=== PATIENT | male | born 1945 | race Caucasian/White ===

== ENCOUNTER 2017-06-03 07:38 | Day surgery (SDC) | payer MEDICARE ==
[~2017-06-03] VITALS: Ht 172.7 cm; Wt 86.1 kg
[~2017-06-03 07:38] MED LIST: CLOB-50 TOP; DESO0.0560 TOP; DIAZ5TAB PO; LACT20SO4 PO; MOBI15TA PO; RAMI10CA35 PO
[2017-06-03] MEDS ORDERED: SODIUM BICARBONATE 100 MEQ in D5W 1000 ML IV SCH (08:00)
[2017-06-03 08:32] VITALS: BP 128/78; PULSE 65; RESP 16; TEMP 98.2; O2SAT 96
[2017-06-03] MEDS ORDERED: HEPARIN SODIUM - IV 10,000 UNITS/10 ML VIAL ONE (08:34)
[2017-06-03] MEDS ORDERED: NITROGLYCERIN INJ 5 ML ONE (08:34)
[2017-06-03] MEDS ORDERED: MIDAZOLAM HCL 5 MG/5 ML VIAL ONE (08:34)
[2017-06-03] MEDS ORDERED: DIAZ5TAB PO (08:43)
[2017-06-03] MEDS ORDERED: TRAM50TA PO (08:43)
[2017-06-03] MEDS ORDERED: NORC5TAB PO (08:43)
[2017-06-03] MEDS ORDERED: RAMI10CA PO (08:43)
[2017-06-03 08:57] LABS: AUTOMATED NEUTROPHIL # 3.6 TH/MM3 (1.8-7.7); BASOPHIL % 0.6 % (0.0-2.0); EOSINOPHIL # 0.1 TH/MM3 (0-0.4); EOSINOPHIL % 0.9 % (0.0-4.0); HEMATOCRIT 44.8 % (39.0-51.0); HEMO FLAGS DIFF FINAL; LYMPH % 27.9 % (9.0-44.0); LYMPHOCYTE # 1.6 TH/MM3 (1.0-4.8); MEAN CELL VOLUME 97.4 FL (80.0-100.0); MEAN CORPUSCULAR HGB CONC 33.9 % (32.0-36.0); MONO % 7.6 % (0.0-8.0); PLATELET COUNT 138 TH/MM3 (150-450); RED CELL DISTRIBUTION WIDTH 12.7 % (11.6-17.2); WHITE BLOOD COUNT 5.8 TH/MM3 (4.0-11.0)
[2017-06-03 09:10] LABS: BICARBONATE 27.5 MEQ/L (21.0-32.0); POTASSIUM 3.9 MEQ/L (3.5-5.1)
[2017-06-03] MEDS ORDERED: MIDAZOLAM HCL 5 MG/ML VIAL (1 ML) ONE (09:51)
[2017-06-03] MEDS ORDERED: diphenhydrAMINE HCL 50 MG/ML VIAL ONE (10:09)
--- NOTE | 2017-06-03 10:18 | HHI.PR ---
Immediate Post Op Note Procedure Date: Jun 03, 2017 Pre Op Diagnosis: PAD, L LE claudication Post Op Diagnosis: PAD, L LE claudication Surgeon: Negro Herzog Lay Brother(s): none Procedure: Aortogram w/ L LE angiogram L popliteal angioplasty (5mm) R INDUSTRIAL DIAMOND POLISHER Angioseal Findings: occluded AK popliteal artery, recanalized and successful SENIOR QUALITY ASSURANCE ENGINEER peroneal only runoff AT and PT reconstitution Additional Information: R INDUSTRIAL DIAMOND POLISHER Angioseal Complications: none Specimen(s) removed: none Estimated blood loss: 5mL Anesthesia: MAC Drains: None Patient to: Other (DOCU) Patient Condition: Good Date/Time of Procedure: SEE SURGICAL CARE RECORD Negro Herzog MD Jun 03, 2017 10:18
[2017-06-03] MEDS ORDERED: CLOPIDOGREL 75 MG TAB PO ONE (10:30)
[2017-06-03] MEDS ORDERED: ONDANSETRON HCL 4 MG/2 ML VIAL ONE (11:23)
--- NOTE | 2017-06-03 20:06 | MP ---
cc: ANDREA HERZOG MD DATE OF SURGERY 06/02/17 PREOPERATIVE DIAGNOSIS Left lower extremity claudication POSTOPERATIVE DIAGNOSIS Left lower extremity claudication PROCEDURE 1. Aortogram with left extremity angiogram. 2. Left popliteal angioplasty with a 5 mm balloon. ATTENDING SURGEON Ashley Herzog MD LADLER None. ANESTHESIA Local with sedation INDICATION Mr. Shah is a 71-year old gentleman with left lower extremity claudication that is lifestyle-limiting. He has attempted medical management and failed. After discussion of risks with the patient he was offered an endovascular intervention. There is no prior catheter-based imaging available for my review. DESCRIPTION OF PROCEDURE Informed consent was obtained from the patient. He was taken to the operating room and placed supine on the operating table. Appropriate time-out was taken to ensure the patient's identity, operative site and planned procedure. Administration of antibiotics was not necessary as this is a clean procedure without a planned implantation of any foreign object. Everyone in the room agreed to time-out and we proceeded. His right groin was anesthetized with 1% lidocaine and a 21 gauge micropuncture needle was used to access the right common femoral artery. This was exchanged using Seldinger technique for a micropuncture sheath which a 0. 035 Orleans wire was introduced and the micropuncture sheath was exchanged for a 4-Cymro sheath. The VCF catheter was placed over the wire and through the sheath and aortogram pelvic arteriogram was obtained. The Orleans wire was reintroduced, navigated down to the left common femoral artery and a VCF catheter was advanced over this. A left lower extremity arteriogram was obtained. The patient was systemically heparinized with 5000 units of intravenous heparin. A 0.035 Hernandez wire was introduced and passed down to the mid SFA. The VCF catheter and 4-Cymro sheath were removed and a 6-Cymro 55 cm Leander sheath was introduced. A CSI catheter was placed over the wire and the wire was exchanged for a 0.014 OUTSIDE EVENT SALES SPECIALIST wire. Using a CT wire and CXI catheter we were able to navigate past the SFA occlusion into the popliteal artery. This was confirmed angiographically. The OUTSIDE EVENT SALES SPECIALIST wire was exchanged for a Hernandez wire. The CSI catheter was removed and the entire area was angioplasties with a 5-mm balloon. The completion angiogram showed excellent result and no recoil extravasation or flow-limiting dissection and there were no embolic complications. The wire catheter and sheath were removed. The groin was closed with AngioSeal. There were no complications. I was present and scrubbed and performed the entire procedure. INTERPRETATION The patient has patent renal arteries, patent infrarenal aorta and common iliac arteries, epigastric artery and external arteries bilaterally. The left common femoral artery and proximal superficial femoral artery are patent. At the adductor canal the superficial femoral artery occludes and there are well formed perigenicular collaterals. The popliteal artery reconstitutes and there is single vessel runoff to the foot with the anterior tibial artery and posterior tibial arteries reconstituting only distally. After angioplasty of the popliteal artery, there is a significant reduction in opacification of these collaterals and good in-line flow down through the peroneal artery. There is no embolic complications. MD TREVOR Hood/ /5:10 PM /7:53 PM
[2017-06-04] MEDS ORDERED: CLOPIDOGREL 75 MG TAB PO SCH (09:00)
--- NOTE | 2017-06-04 20:19 | EKG ---
Date Performed: 06/03/2017 Time Performed: 08:53:54 PTAGE: 71 years EKG: Sinus rhythm . Normal ECG PREVIOUS TRACING : 08/16/2015 10.36 Compared to prior tracing no significant change DOCTOR: Praneeth Akers Interpretating Date/Time 06/04/2017 20:18:55
== END 2017-06-03 13:25 | disposition home or self-care (01) ==
LOC: HDOC 07:38 → HDIC 07:38 → HDOC 13:25
PROVIDERS: ATTEND Surgery
DX: I73.9 Peripheral vascular disease, unspecified (principal); I70.90 Unspecified atherosclerosis; I10 Essential (primary) hypertension; M51.06 Intervertebral disc disorders with myelopathy, lumbar region; Z01.818 Encounter for other preprocedural examination
CPT/HCPCS: 37224; 75625; 75710; 80048; 85025; 93005; C1725; C1769; G0269; J1200; J1644; J2250; J2405; J3010

== ENCOUNTER 2017-07-16 07:15 | Day surgery (SDC) | payer MEDICARE ==
[~2017-07-16] VITALS: Ht 172.7 cm; Wt 72.7 kg
[~2017-07-16 07:15] MED LIST changes: -CLOB-50 TOP; -DESO0.0560 TOP; -LACT20SO4 PO; -MOBI15TA PO; +NORC5TAB PO; +RAMI10CA PO; -RAMI10CA35 PO; +TRAM50TA PO
[2017-07-16] MEDS ORDERED: IOHEXOL 350 MG/ML 50 ML BTL (for Cath Lab) OTHER ONE (07:16)
--- NOTE | 2017-07-16 07:32 | PD.VS.PN ---
Pre-operative Note Pre-operative diagnosis: Recurrent L LE claudication, PAD Planned procedure: L LE angiogram and possible intervention Interval History: Pt has been feeling well since last procedure. Specifically no F/C/N/V. Ready for procedure. Orders: NPO Post-operative destination: DOCU Operative site marked: Yes Consent: Informed consent has been obtained from Tommy Shah. I have explained the procedure in detail and discussed the risks, benefits, and potential complications. All questions have been answered. Negro Herzog MD Jul 16, 2017 07:32
[2017-07-16 08:00] VITALS: BP 112/76; PULSE 57; RESP 18; TEMP 98; O2SAT 98
[2017-07-16] MEDS ORDERED: HEPARIN-NS/PF INJ 1,000 ML ONE (08:15)
[2017-07-16] MEDS ORDERED: MIDAZOLAM HCL 2 MG/2 ML VIAL ONE ×2 (08:16→08:34)
[2017-07-16] MEDS ORDERED: HEPARIN SODIUM - IV 10,000 UNITS/10 ML VIAL ONE (08:17)
--- NOTE | 2017-07-16 08:59 | HHI.PR ---
Immediate Post Op Note Procedure Date: Jul 16, 2017 Pre Op Diagnosis: LLE claudication, PAD Post Op Diagnosis: LLE claudication, PAD Surgeon: Negro Herzog Burr Bench Operator(s): none Procedure: L LE angiogram L popliteal LICENSED OPTICIAN (5mm) with DCB R HOT MILL OPERATOR Angioseal Findings: occlusion of popliteal artery recanalization of popliteal artery with DCB Complications: none Specimen(s) removed: none Estimated blood loss: 10mL Anesthesia: MAC Drains: None Fluids: 400mL IVF Patient to: Other (DOCU) Patient Condition: Good Date/Time of Procedure: SEE SURGICAL CARE RECORD Negro Herzog MD Jul 16, 2017 08:59
[2017-07-16] MEDS ORDERED: CLOPIDOGREL 75 MG TAB PO ONE (09:00)
--- NOTE | 2017-07-16 09:02 | CATHPROC ---
[facility] HIS Report Study Information Study Number Admission Scheduled Start Study Start [id number] Jul 16 2017 7:15AM 07/16/2017 Jul 16 2017 8:07AM [facility] Endovascular Study Admit Source Facility Department Other [facility] - Fish Hatchery Laborer Physician and Clinical Staff Initial MD Herzog, Negro Cable Assembler And Swager Akira Villarreal,HAI Recorder Michael Phipps,RT(R) ScrBetty Rodgers,RT(R) (BS) Procedures Performed Procedure Location (Site) Vessel Name Angiogram (manual) Fem L. Com (L7) Femoral Art Angiogram (manual) SFA (left) Femoral Art Angiogram (manual) Tib, Ant. (left) Popliteal PRODUCTION MANUFACTURING WORKER SFA (left) Femoral Art Wire insertion Fem Art (right) Femoral Art Equipment Time Customer Expert Description Size Mfg Part Number Used/Scraped [id number] 08:25 ANGIO-DYNAMICS OMNI FLUSH 65CM CATHETER FR 4 Used *[id number] BALLOON, LUTONIX 5 X 100 [id number] 08:41 BARD 5 X 100 Used 130CM DCB *[id number] MPIS-502-10.0- INTRODUCER SET, 08:27 COOK INC. FR 5 SC-NT-U-SST Used MICROPUNCTURE, STIFFENED *[id number] CXI-4.0-35-135- 08:31 COOK/ALBINO CATHETER, FR4 CXI SUPPORT FR 4 Used P-NS-0 *[id number] SHEATH, FR6 VERONA 1 FLEXOR KCFW-6.0-35-55- 08:31 COOK/ALBINO FR 6 Used 55CM LX-XNLUF0-AM WIRE, GUIDE APPROACH WATCH HAIRSPRING ASSEMBLER [id number] 08:31 COOK/ALBINO 300CM Used MICROWIRE *[id number] 08:50 DAIG/ST. TOYIN MEDICAL ANGIOSEAL, FR6 VIP FR 6 Used *[id number] 08:20 MALLINCKRODT SYRINGE, ANGIOMAT 150ML 150ML [id number] Used [id number] 08:20 [employer] INDUSTRIES PACK, CCL CUSTOM * Used *[id number] 4205-33 08:31 MERIT MEDICAL WIRE, BLANCHARD 260CM .035 260CM Used *[id number] 08:20 NAMIC TUBING, HIGH PRESSURE 48" 48" Used *[id number] 08:20 NYCOMED OMNIPAQUE, 300 MG, 150ML 150ML [id number] Used [id number] 08:20 CASTRO MEDICAL BLANKET,WARM AIR CCL * Used *[id number] LWQ018 08:21 TERUMO MEDICAL SHEATH, FR4 TERUMO (10CM) FR 4 Used *[id number] WIRE, ANGLED GLIDE .035 [id number] 08:26 TERUMO MEDICAL/ALBINO 260CM Used 260CM *[id number] Equipment Model, Serial, Lot Number and Expiration Data Description Model Number Serial Number Lot Number Expiration Date ANGIOSEAL, FR6 VIP [id number] 05-12-2018 CATHETER, FR4 CXI SUPPORT [id number] 11-12-2019 SHEATH, FR6 VERONA 1 FLEXOR [id number] 09-25-2019 55CM WIRE, GUIDE APPROACH WATCH HAIRSPRING ASSEMBLER [id number] 06-27-2021 MICROWIRE History: Allergies Allergy Reaction No Known Allergies History: Risk Factors Family History of Previous [place] Previous Heart Failure Premature CAD No No No Prior Valve Prior PCI Prior CABG Surgery No No No Cerebrovascular Peripheral Artery On Dialysis Disease Disease No No Yes History: Stress Tests Stress or Imaging Studies Performed No History: Other Current Smoker No Labs CPK-MB (ng/ML) 0.50-3.60 Not Drawn Medication Medication Total Dose (Bolus/Oral) Medication Total Dosage/Unit 1% XYLOCAINE 20 mL FENTANYL 100 mcg HEPARIN 5000 units VERSED 3 mg Medications (Bolus/Oral) Medication Time Given Dosage/Unit Administered By Reason VERSED 07/16/2017 8:22:49 AM 2 mg Akira Villarreal 2 mg VERSED given in lab by Akira Villarreal RN in Left Antecubital via Peripheral IV. 1% XYLOCAINE 07/16/2017 8:22:55 AM 20 mL Negro Herzog 20 mL 1% XYLOCAINE given in lab by Negro Herzog in Right Groin via Subcutaneous. FENTANYL 07/16/2017 8:25:18 AM 25 mcg Negro Herzog 25 mcg FENTANYL given in lab by Negro Herzog in Left Antecubital via Peripheral IV. HEPARIN 07/16/2017 8:31:15 AM 5000 units Akira Villarreal 5000 units HEPARIN given in lab by Akira Villarreal, HAI in Left Antecubital via Peripheral IV. FENTANYL 07/16/2017 8:32:54 AM 25 mcg Negro Herzog 25 mcg FENTANYL given in lab by Negro Herzog in Left Antecubital via Peripheral IV. VERSED 07/16/2017 8:34:51 AM 1 mg Akira Villarreal 1 mg VERSED given in lab by Akira Villarreal RN in Left Antecubital via Peripheral IV. FENTANYL 07/16/2017 8:42:00 AM 50 mcg Negro Herzog 50 mcg FENTANYL given in lab by Negro Herzog in Left Antecubital via Peripheral IV. Medication (Drip) Medication Time Given Dosage/Unit Concentration/Unit Diluent (ml) Solutio n IV Solutions 07/16/2017 8:09:11 AM 0 mL (IV) 500 NaCl .9 IV Solutions given in lab by Akira Villarreal RN in Left Antecubital via Peripheral IV. Pump/Drip Flow = 20 ml/hr using NaCl .9. Initial Case Assessment Cardiovascular HR Rhythm NIBP Chest Pain 55 Sinus 134/74 0 Edema Present Skin color Skin None Normal Warm Dry Circulatory - Right Pulses Dorsalis Pedis Femoral 1 2 Scale (0,1,2,3,4,d) Circulatory - Left Pulses Dorsalis Pedis Femoral 1 2 Scale (0,1,2,3,4,d) Neurological State Oriented to time-place- Alert Moves all extremities person Respiration - General Respiration Rate SpO2 (%) O2 (lpm) (B/min) 8 97 0 Final Case Assessment Cardiovascular HR Rhythm NIBP Chest Pain 62 Sinus 130/73 0 Edema Present Skin color Skin None Normal Warm Dry Circulatory - Right Pulses Dorsalis Pedis Femoral 1 2 Scale (0,1,2,3,4,d) Circulatory - Left Pulses Dorsalis Pedis Femoral 1 2 Scale (0,1,2,3,4,d) Neurological State Oriented to time-place- Alert Moves all extremities person Respiration - General Respiration Rate SpO2 (%) O2 (lpm) (B/min) 16 97 0 Chronological Log Time Study Chronological Log 8:05:52 Patient arrived via Bed. 8:08:56 Patient Name, D.O.B, / Armband Verified By R.N. 8:08:56 Consent signed by the physician and the patient and verified by the Fish Hatchery Laborer staff. 8:08:58 Pre-op and post- op instructions given; patient acknowledges understanding of instructions. Verbal Stimulation=~VERBAL~ Physical Stimulation=~PHYSICAL~ Airway=~AIRWAY~ Respiration=~RESPIR ATION~ 8:08:59 TOTAL=~TOTAL~. (0=absent, 1=limited, 2=present) 8:09:01 Presedation assessment performed by Fish Hatchery Laborer RN. 8:09:04 Patient has been NPO for More than 6Hrs. 8:09:05 Skin Breakdown- 8:09:06 Patient Warmer Placed on the Table. 8:09:09 Yunior Prominences Protected 8:09:10 A # ~SIZE~ IV was noted in the ~SITE~. Grade = ~GRADE~ IV Solutions given in lab by Akira Villarreal, RN in Left Antecubital via Peripheral IV. Pump/Dri p Flow = 20 ml/hr using 8:09:11 NaCl .9. 8:09:15 History and physical on the chart or being dictated. Assessment: Initial Case, HR=55 BPM, Rhythm=Sinus, QEEU=075/74 mmhg, Chest Pain=0, Edema=None, Color=Normal, Skin = Warm, Dry Right Pulses: Emil Ped=1, Femoral=2 8:09:16 Left Pulses: Emil Ped=1, Femoral=2 Neurological: State=Alert, Ox3, BARRETT Respiration: Resp=8 B/min, SpO2=97 %, O2=0 lpm 8:12:13 MD arrived. Vitals capture started with the following parameters, Patient=Adult, Interval=5 min, Initial Pre vizpm=664 mmHg, 8:15:01 Deflation Rate=5 mmHg 8:15:07 Reference ECG taken 8:15:37 HR=55 bpm, XGZV=458/74 mmhg, SpO2=98.0 %, Resp=9 B/min, Pain=0, Gracie=10, Vaughan=2 8:18:08 Bilateral groins prepped with 2% chlorhexidine, and draped after a 3 minute waiting time. 8:20:39 HR=60 bpm, BBGV=410/66 mmhg, SpO2=98.0 %, Resp=8 B/min, Pain=0, Gracie=10, Vaughan=2 Time Out. Correct patient, correct procedure, correct physician, power injector not loaded with contrast with surgical 8:22:28 team present. Time Out Concurred by MD and individual staff in procedure. 8:22:43 Case Start 8:22:49 2 mg VERSED given in lab by Akira Villarreal RN in Left Antecubital via Peripheral IV. 8:22:55 20 mL 1% XYLOCAINE given in lab by Negro Herzog in Right Groin via Subcutaneous. 8:25:18 25 mcg FENTANYL given in lab by Negro Herzog in Left Antecubital via Peripheral IV. 8:25:35 HR=59 bpm, KMFC=363/76 mmhg, SpO2=96.0 %, Resp=15 B/min, Pain=0, Gracie=10, Vaughan=2 8:27:39 Access site was Right Femoral Artery. 8:27:40 A SHEATH, FR4 TERUMO (10CM) FR 4 was advanced into the Fem Art (right) using the Percutaneou s technique. A OMNI FLUSH 65CM CATHETER FR 4 was advanced over a wire. OMNIPAQUE, 300 MG, 150ML 150ML was use d for 8:27:51 injections. 8:28:07 Wire removed 8:29:50 Fem L. Com (L7) angiogram, manually injected. 8:29:51 SFA (left) angiogram, manually injected. 8:29:51 SFA (left) angiogram, manually injected. 8:30:37 HR=58 bpm, URLA=546/70 mmhg, SpO2=95.0 %, Resp=8 B/min, Pain=0, Gracie=10, Vaughan=2 8:31:15 5000 units HEPARIN given in lab by Akira Villarreal RN in Left Antecubital via Peripheral IV. 8:31:29 A WIRE, LO 260CM .035 260CM was inserted via Fem Art (right). 8:32:01 Catheter was removed w/o difficulty 8:32:54 25 mcg FENTANYL given in lab by Negro Herzog in Left Antecubital via Peripheral IV. A SHEATH, FR6 VERONA 1 FLEXOR 55CM FR 6 was exchanged in the Fem Art (right). This was necessary in order to 8:33:35 accomodate a larger catheter. A CATHETER, FR4 CXI SUPPORT FR 4 was advanced over a wire. OMNIPAQUE, 300 MG, 150ML 150ML was us ed for 8:34:23 injections. 8:34:30 Wire removed 8:34:51 1 mg VERSED given in lab by Akira Villarreal, RN in Left Antecubital via Peripheral IV. 8:35:00 SFA (left) angiogram, manually injected. 8:35:36 HR=58 bpm, MWUP=379/70 mmhg, SpO2=95.0 %, Resp=15 B/min, Pain=0, Gracie=10, Vaughan=2 8:37:46 A WIRE, GUIDE APPROACH WATCH HAIRSPRING ASSEMBLER MICROWIRE 300CM was inserted via Fem Art (right). 8:40:37 HR=61 bpm, DYJR=617/70 mmhg, SpO2=94.0 %, Resp=12 B/min, Pain=0, Gracie=10, Vaughan=2 A BALLOON, LUTONIX 5 X 100 130CM DCB 5 X 100 was inserted over WIRE, GUIDE APPROACH WATCH HAIRSPRING ASSEMBLER MICROWIR E 8:41:07 300CM via the SFA (left). 8:42:00 50 mcg FENTANYL given in lab by Negro Herzog in Left Antecubital via Peripheral IV. 8:42:11 In the SFA (left) a BALLOON, LUTONIX 5 X 100 130CM DCB 5 X 100 was inflated to 6 atms for 18 0 seconds. 8:46:13 HR=56 bpm, XMFJ=148/72 mmhg, SpO2=95.0 %, Resp=11 B/min, Pain=0, Gracie=10, Vaughan=2 8:46:45 Balloon Removed. 8:47:38 SFA (left) angiogram, manually injected. 8:49:19 Tib, Ant. (left) angiogram, manually injected. 8:50:35 HR=64 bpm, ACVG=608/73 mmhg, SpO2=95.0 %, Resp=14 B/min, Pain=0, Gracie=10, Vaughan=2 8:50:38 ANGIOSEAL, FR6 VIP FR 6 placement in the Fem Art (right) 8:51:33 Case End 8:51:36 No case complications noted. 8:51:39 Cine recording checked. 8:53:36 Bedside Report will be given. Assessment: Final Case, HR=62 BPM, Rhythm=Sinus, SEUV=371/73 mmhg, Chest Pain=0, Edema=None, Color=Normal, Skin = Warm, Dry Right Pulses: Emil Ped=1, Femoral=2 8:53:41 Left Pulses: Emil Ped=1, Femoral=2 Neurological: State=Alert, Ox3, BARRETT Respiration: Resp=16 B/min, SpO2=97 %, O2=0 lpm 8:55:38 HR=57 bpm, CFVJ=385/78 mmhg, SpO2=97.0 %, Resp=23 B/min, Pain=0, Gracie=10, Vaughan=2 8:55:45 Sterile dressing applied to site 9:03:07 Patient moved to stretcher End Study - Contrast Media Used In Study Contrast Total Opened (mL) Total Used (mL) Total Wasted (mL) Omnipaque 150 50 100 End Study - Radiation Exposure Fluoro Time (minutes) 3.9 End Study - Patient Disposition Complications Transferred To Interventional Outcome No Outpatient Bed successful
--- NOTE | 2017-07-16 09:59 | MP ---
cc: ANDREA HERZOG MD DATE OF SURGERY 07/16/2017 PREOPERATIVE DIAGNOSIS Left lower extremity claudication status post left popliteal angioplasty. POSTOPERATIVE DIAGNOSIS Left lower extremity claudication status post left popliteal angioplasty. PROCEDURE 1. Left lower extremity angiograms. 2. Popliteal artery angioplasty with a 5-mm drug-coated balloon. 3. Right common femoral artery Angio-Seal. ATTENDING SURGEON Andrea Herzog MD ANESTHESIA Local with sedation. INDICATIONS Mr. Shah is a 71-year-old gentleman with left lower extremity claudication. About two months ago he had a left popliteal angioplasty and according to our duplex this has recurred, he has recurrent symptoms. He is taken to the operating room for angiographic evaluation and potential treatment. There is no prior catheter-based imaging available for my review since there is ultrasonographic evidence of reocclusion. DESCRIPTION OF PROCEDURE Informed consent was obtained from the patient. The patient was taken to the operating room and placed supine on the operating room table and appropriate time-out was taken to insure identity of the patient, the operative site and the planned procedure. The administration of antibiotics was not necessary since this was a clean procedure without any plan for implantation of any foreign object. Everyone in the room agreed with the time-out and we proceeded. His right groin was prepped and draped, locally anesthetized with 1% lidocaine. A 21-gauge micropuncture needle was used to access the right common femoral artery. This was exchanged using Seldinger technique for a micropuncture sheath through which a 0.035 Glidewire was introduced and the micropuncture sheath was exchanged for a 4-Nigerien sheath. A VCF catheter was advanced over the wire into the sheath and, using the VCF and [place], we were able to navigate the catheter and wire down to the left common femoral artery and the left lower extremity angiogram was obtained. The patient was systemically heparinized with 5000 units of IV heparin. A 0.035 Hernandez wire was introduced down to the distal SFA. The VCF catheter and 4-Nigerien sheath were removed and a 55-cm Leander sheath was introduced. A CXI catheter was placed over the wire, into the sheath and the Hernandez wire was exchanged for a IMPLEMENTATION SERVICES ANALYST wire. Using the IMPLEMENTATION SERVICES ANALYST wire and the CXI catheter, we were able to navigate down to the peroneal artery and this was confirmed angiographically. The Hernandez wire was reintroduced, the catheter was removed and the entire popliteal artery occlusion was angioplastied with a 5-mm drug-coated balloon. At completion the aortogram showed excellent result. There was no recall or extravasation. There was a xxm-trac-wlbazocs dissection in the above-knee popliteal artery that appeared quite benign. The catheter and sheath were removed and the groin was closed with an AngioSeal. There were no complications. I was present and scrubbed and performed the entire procedure. INTERPRETATION OF IMAGES This patient has a patent left common femoral artery profunda and superficial femoral arteries. The popliteal artery is occluded. Geniculate collaterals reconstituted the peroneal artery which has dominant runoff. The peroneal artery reconstitutes the dorsalis pedis and the posterior tibial. After angioplasty of the popliteal artery there is only a minor ldw-mnpt-ykywlmvi dissection. There was no embolic complication. MD TREVOR Hood/OBED /9:03 AM /9:37 AM
[2017-07-16] MEDS ORDERED: SODIUM BICARBONATE 100 MEQ in D5W 1000 ML IV SCH (10:00)
[2017-07-16] MEDS ORDERED: PLAV75TA29 PO (10:39)
== END 2017-07-16 12:00 | disposition home or self-care (01) ==
LOC: HDIC 07:15 → HCAT 07:15
PROVIDERS: ATTEND Surgery
DX: I73.9 Peripheral vascular disease, unspecified (principal)
CPT/HCPCS: 37224; 75710; C1751; C1760; C1769; C1893; G0269; J1644; J2250; J3010; C2623; Q9967